=== PATIENT | female | born 1945 | race Caucasian/White ===

== ENCOUNTER 2016-09-14 17:40 | Emergency (ER) | payer OTHER ==
[~2016-09-14] VITALS: Ht 162.6 cm; Wt 80.1 kg
[2016-09-14] MEDS ORDERED: VIGAMOX 0.60 DROP/3 LEFT EYE (21:39)
[2016-09-14 22:01] VITALS: BP 121/57
== END 2016-09-14 22:02 | disposition home or self-care (01) ==
LOC: EME 17:40
DX: S05.02XA Injury of conjunctiva and corneal abrasion without foreign body, left eye, initial encounter (principal); X58.XXXA Exposure to other specified factors, initial encounter; Z98.890 Other specified postprocedural states; I10 Essential (primary) hypertension; E11.9 Type 2 diabetes mellitus without complications
CPT/HCPCS: 99281; 99283